=== PATIENT | male | born 1945 | race Caucasian/White ===

== ENCOUNTER → 2020-05-27 09:46 | Outpatient (BNVA) | payer MEDICARE, OTHER, SELFPAY | PROVIDERS: Visit Provider Urology | DX: N40.0 Benign prostatic hyperplasia without lower urinary tract symptoms (principal); N40.2 Nodular prostate without lower urinary tract symptoms; N52.9 Male erectile dysfunction, unspecified; C61 Malignant neoplasm of prostate; Z12.5 Encounter for screening for malignant neoplasm of prostate | CPT/HCPCS: 81003; G0103 ==

== ENCOUNTER → 2020-06-06 12:52 | Outpatient (BNVA) | payer MEDICARE, OTHER, SELFPAY | PROVIDERS: Visit Provider Urology | DX: N40.2 Nodular prostate without lower urinary tract symptoms (principal) | CPT/HCPCS: 88305 ==

== ENCOUNTER 2020-06-30 14:45 | Outpatient (CLI) | payer MEDICARE, OTHER, SELFPAY ==
--- NOTE | 2020-06-30 15:58 | N.ONRAD NP_ITS ---
Radiation Oncology Consultation Patient Name: Merrill Paul Date of : 1945 Date of Service: 06/30/2020 Attending Physician: Marky Machuca M.D. Merrill Paul was seen in consultation this afternoon at the request Elia Mims M.D. 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 He initially was identified to have a suspicious nodule located on his right prostatic base during a digital rectal examination. His initial PSA was 1.1 ng/mL (December 2019). A TRUS biopsy performed by Elia Mims M.D. on June 06, 2020 identified a 21 cc prostate without suspicious ultrasonogrpahic findings. The pathology report (personally reviewed in [employer]) diagnosed an adenocarcinoma of the prostate gland ([place] score 4+3 involving 20% of the right lateral mid gland ??? 1/2 cores; Jennifer score 3+4 involving 80% of the right lateral base - 1/1 core; [place] score 3+3 involving 5% of the right base - 1/1 core). His most recent PSA (independently verified in [facility]) was 0.68 ng/mL (05/27/2020). I discussed the patient's AJCC clinical stage IIC (T2aN0) unfavorable intermediate risk prostate cancer. In accordance to NCCN Guidelines, surgery, external beam radiotherapy with androgen deprivation therapy (6 months), or radiotherapy with brachytherapy (as per the ASCENDE-RT Trial) are treatment options. He would like to evaluate his choices treatment prior to making a final decision. Signed by: Dr. Marky Machuca 06/30/2020 3:57:21 PM
== END 2020-06-30 14:46 | disposition home or self-care (01) ==
PROVIDERS: PCP Nurse Practitioner; Visit Provider Radiology Radiation Oncology
DX: C61 Malignant neoplasm of prostate (principal)
CPT/HCPCS: 99204

== ENCOUNTER → 2022-11-10 13:42 | Outpatient (BNVA) | payer MEDICARE, OTHER, SELFPAY | PROVIDERS: PCP Nurse Practitioner; Referring Provider Nurse Practitioner; Visit Provider Nurse Practitioner Family | DX: L57.0 Actinic keratosis (principal); Z85.828 Personal history of other malignant neoplasm of skin; L81.4 Other melanin hyperpigmentation; D22.5 Melanocytic nevi of trunk; Z71.89 Other specified counseling; L85.3 Xerosis cutis | CPT/HCPCS: 17000; 17003; 99203 ==

== ENCOUNTER → 2023-11-09 10:57 | Outpatient (BNVA) | payer MEDICARE, OTHER, SELFPAY | PROVIDERS: PCP Nurse Practitioner; Visit Provider Nurse Practitioner Family | DX: L57.0 Actinic keratosis (principal); L57.8 Other skin changes due to chronic exposure to nonionizing radiation; L81.4 Other melanin hyperpigmentation; D22.5 Melanocytic nevi of trunk; L85.3 Xerosis cutis; L82.0 Inflamed seborrheic keratosis; S70.362A Insect bite (nonvenomous), left thigh, initial encounter; X58.XXXA Exposure to other specified factors, initial encounter | CPT/HCPCS: 17000; 17110; 99213 ==

== ENCOUNTER → 2024-03-08 09:26 | Outpatient (BNVA) | payer MEDICARE, OTHER, SELFPAY | PROVIDERS: PCP Nurse Practitioner; Visit Provider Podiatrist Foot & Ankle Surgery | DX: M20.41 Other hammer toe(s) (acquired), right foot; M21.611 Bunion of right foot; L84 Corns and callosities; M79.671 Pain in right foot | CPT/HCPCS: 73630; 99203 ==

== ENCOUNTER → 2024-06-04 07:54 | Outpatient (BNVA) | payer MEDICARE, OTHER, SELFPAY | PROVIDERS: PCP Nurse Practitioner; Visit Provider Podiatrist Foot & Ankle Surgery | DX: M20.41 Other hammer toe(s) (acquired), right foot (principal); M21.611 Bunion of right foot; L84 Corns and callosities | CPT/HCPCS: 99213 ==

== ENCOUNTER → 2024-11-07 07:50 | Outpatient (BNVA) | payer MEDICARE, OTHER, SELFPAY | PROVIDERS: PCP Nurse Practitioner; Visit Provider Nurse Practitioner Family | DX: L73.9 Follicular disorder, unspecified (principal); L82.1 Other seborrheic keratosis; L57.8 Other skin changes due to chronic exposure to nonionizing radiation; L81.4 Other melanin hyperpigmentation; D22.5 Melanocytic nevi of trunk; Z08 Encounter for follow-up examination after completed treatment for malignant neoplasm; Z85.828 Personal history of other malignant neoplasm of skin; L57.0 Actinic keratosis | CPT/HCPCS: 17000; 99214 ==

== ENCOUNTER → 2025-01-29 13:56 | Outpatient (BNVA) | payer MEDICARE, OTHER, SELFPAY | PROVIDERS: PCP Nurse Practitioner Family; Visit Provider Podiatrist Foot & Ankle Surgery | DX: M20.41 Other hammer toe(s) (acquired), right foot (principal); M21.611 Bunion of right foot; L84 Corns and callosities; M72.2 Plantar fascial fibromatosis | CPT/HCPCS: 73630; 99214 ==

== ENCOUNTER 2025-03-14 10:15 | Outpatient (CLI) | payer MEDICARE, OTHER, SELFPAY | END 2025-03-14 10:16 | disposition home or self-care (01) | LOC: SPT 10:16 | PROVIDERS: PCP Nurse Practitioner Family; Visit Provider Podiatrist Foot & Ankle Surgery | DX: Z46.89 Encounter for fitting and adjustment of other specified devices (principal); M72.2 Plantar fascial fibromatosis; M20.41 Other hammer toe(s) (acquired), right foot; M21.611 Bunion of right foot; L84 Corns and callosities | CPT/HCPCS: L3030 ==